=== PATIENT | male | born 1940 | race Two or more races ===

== ENCOUNTER 2017-08-06 10:04 | Outpatient (CLI) | payer OTHER ==
[~2017-08-06 10:04] MED LIST: ATORVASTATIN CA10 MG; AVAPRO300 MG PO; BRONCOTRON-D S473 ML PO; CARVEDILOL25 MG; CATAFLAM50 MG PO; CIPRO500 MG PO; DIURETICO; HYDRODIURIL12.5 MG PO; INTESTINEX1 CAP PO; LANTUS100 U/ML; LASIX20 MG; LEVAQUIN500 MG PO; LEVSIN/SL0.125 MG PO; LOSARTAN POTASS50 MG; MEDROLPACK PO; METFORMIN HCL500 MG PO; NORVASC5 MG; OMEPRAZOLE40 MG PO; PROVENTIL3 ML/2.5 M IH; TAMS0.4C; [UNRECOGNIZED DRUG - OTHER]; [UNRECOGNIZED DRUG - OTHER]
== END 2017-08-06 10:31 | disposition home or self-care (01) ==
LOC: RAD 10:04
DX: J43.2 Centrilobular emphysema (principal); Z87.891 Personal history of nicotine dependence; E66.01 Morbid (severe) obesity due to excess calories; R05 Cough

== ENCOUNTER 2018-05-13 06:08 | Day surgery (SDC) | payer OTHER | END 2018-05-13 11:12 | disposition home or self-care (01) | LOC: AMB-ENDOS 06:08 | DX: K29.50 Unspecified chronic gastritis without bleeding (principal) ==

== ENCOUNTER 2018-08-09 08:24 | Emergency (ER) | payer OTHER ==
[~2018-08-09] VITALS: Ht 170.2 cm; Wt 117.9 kg
== END 2018-08-09 15:47 | disposition home or self-care (01) ==
LOC: ER 08:24
DX: R06.02 Shortness of breath (principal); R10.817 Generalized abdominal tenderness

== ENCOUNTER → 2018-08-18 | Outpatient (CLI) | payer OTHER | END | disposition home or self-care (01) | LOC: NUCLEAR 07:00 | DX: I25.118 Atherosclerotic heart disease of native coronary artery with other forms of angina pectoris (principal) | CPT/HCPCS: 78452; 93017; A9500; J1250 ==

== ENCOUNTER 2019-01-03 06:01 | Inpatient (IN) | payer OTHER ==
[~2019-01-03] VITALS: Ht 170.2 cm; Wt 117.5 kg
--- NOTE | 2019-01-03 06:33 | NUR ---
SE RECIBE PTE ALERTA Y ORIENTADO POR DEONTE AMBULANDO CON DIFICULTAD. PTE REFIERE PRESENTAR DIFICULTAD RESPIRATORIA Y TOS DESDE HACE 4 MAX. SE OBSERVA A PTE CLINICAMENTE ENFERMO, CON PIERNAS HINCHADAS, CON DIFICULTAD RESPIRATORIA Y PALIDO. SE LE REALIZA A PTE EKG Y SE LE PRESENTA A . PTE ES COLOCADO EN AREA DE CRITICO CONECTADO A MONITOR CARDIACO Y OXIMETRIA DE PULSO.
--- NOTE | 2019-01-03 06:58 | NUR ---
PACIENTE ALERTA Y ORIENTADO X3. SE UBICO EN CAMA #1 CON BARANDAS ELEVADAS Y INTERCOM ACCESIBLE. SE CONECTO A MONITOR CARDIACO Y OXIMTERIA DE PULSO. MISS. LARA ORIENTA A PAMCIENTE SOBRE TX Y PROCEDIMIENTO A REALIZAR Y REFIRIO ENTENDER. REALIZO CANALIZACION Y MUESTRAS DE DAVID BAJO MEDIDAS ASEPTICAS. SE ADMINISTRO MEDICAMENTOS RUBY ORDEN MEDICA, LASIX 40MG IV STAT. LE REALIZARON GASES ARTERIALES A PACIENTE. 0701 PERSONAL DE ALEXANDRA X REALIZA PLACA PORTABLE.
--- NOTE | 2019-01-03 07:00 | NUR ---
SE RECIBE PTE ALERTA Y CONCIENTE POR 3 EN LA UNIDAD DE CRITICO EN CAMA #1 CON BARANDAS LEVADA TIMBRE ACCESIBLE CONECTADO A MONITOR CARDIACO Y OXYMETRIA DE PULSO PTE NO PRESENTA DOLOR ALMOMENTO. PTE EN ESEPRA DEL DR JIMENEZ
--- NOTE | 2019-01-03 16:55 | NUR ---
SE RECIBE PTE ALERTA Y ORIENTADO X3 EN MURRAY CON BARANDAS ELEVADAS AL MOMENTO. PTE SE OBSERVA CONECTADO A MONITOR CARDIACO CON OXIMETRIA DE PULSO. PTE SE OBSERVA CON H/L X2 EN BRAZO RT. PTE SE OBSERVA CON DRIP DE TRIDIL A 3ML/HR. PTE EN ESPERA DE CONSULTA CON MEDICINA INTERNA Y NEUMOLOGO. PTE SE CONTINUA MONITORIANDO POR CAMBIOS.
[2019-01-10] MEDS ORDERED: GLIMEPIRIDE4 MG PO (17:29)
[2019-01-10] MEDS ORDERED: LIPITOR40 MG PO (17:29)
[2019-01-10] MEDS ORDERED: LOSARTAN POTAS100 MG PO (17:29)
== END 2019-01-10 18:14 | disposition home or self-care (01) | DRG 190 ==
LOC: ER 06:01 → SURH 17:55 → MEDJ 01-04 17:14
PROVIDERS: ADMIT Internal Medicine
PROC: B246ZZZ Ultrasonography of Right and Left Heart (ICD-10-PCS; principal; 2019-01-03)
PROC: 4A033R1 Measurement of Arterial Saturation, Peripheral, Percutaneous Approach (ICD-10-PCS; 2019-01-03)
PROC: 4A12X4Z Monitoring of Cardiac Electrical Activity, External Approach (ICD-10-PCS; 2019-01-03)
DX: J44.1 Chronic obstructive pulmonary disease with (acute) exacerbation (principal); I50.43 Acute on chronic combined systolic (congestive) and diastolic (congestive) heart failure; A41.01 Sepsis due to Methicillin susceptible Staphylococcus aureus; B37.1 Pulmonary candidiasis; J45.41 Moderate persistent asthma with (acute) exacerbation; N17.8 Other acute kidney failure; I13.0 Hypertensive heart and chronic kidney disease with heart failure and stage 1 through stage 4 chronic kidney disease, or unspecified chronic kidney disease; B37.0 Candidal stomatitis; I07.1 Rheumatic tricuspid insufficiency; I25.10 Atherosclerotic heart disease of native coronary artery without angina pectoris; N18.3 Chronic kidney disease, stage 3 (moderate); E11.40 Type 2 diabetes mellitus with diabetic neuropathy, unspecified; E11.22 Type 2 diabetes mellitus with diabetic chronic kidney disease; E11.65 Type 2 diabetes mellitus with hyperglycemia; E66.09 Other obesity due to excess calories; Z79.4 Long term (current) use of insulin

== ENCOUNTER 2019-05-28 14:07 | Emergency (ER) | payer OTHER ==
[~2019-05-28] VITALS: Ht 170.2 cm; Wt 116.6 kg
[~2019-05-28 14:07] MED LIST changes: +GLIMEPIRIDE4 MG PO; +LIPITOR40 MG PO; +LOSARTAN POTAS100 MG PO
== END 2019-05-28 19:04 | disposition home or self-care (01) ==
LOC: ER 14:07
DX: I16.0 Hypertensive urgency (principal); I10 Essential (primary) hypertension; R06.02 Shortness of breath

== ENCOUNTER 2019-06-06 12:50 | Outpatient (CLI) | payer OTHER | END 2019-06-06 14:09 | disposition home or self-care (01) | LOC: NUCLEAR 12:50 | DX: I50.32 Chronic diastolic (congestive) heart failure (principal) | CPT/HCPCS: 78472; 78496; A9560 ==

== ENCOUNTER 2019-11-29 10:11 | Emergency (ER) | payer OTHER ==
[~2019-11-29] VITALS: Ht 170.2 cm; Wt 117.5 kg
== END 2019-11-29 13:42 | disposition home or self-care (01) ==
LOC: ER 10:11
DX: R06.02 Shortness of breath (principal)

== ENCOUNTER 2021-06-03 07:47 | Outpatient (CLI) | payer OTHER | END 2021-06-03 08:00 | disposition home or self-care (01) | LOC: TOM 07:47 | PROVIDERS: ATTEND Internal Medicine Gastroenterology | DX: K21.9 Gastro-esophageal reflux disease without esophagitis (principal); Z86.010 Personal history of colon polyps; D64.9 Anemia, unspecified; K56.600 Partial intestinal obstruction, unspecified as to cause ==

== ENCOUNTER 2021-10-11 14:56 | Inpatient (IN) | payer OTHER ==
[~2021-10-11] VITALS: Ht 170.2 cm; Wt 113.9 kg
--- NOTE | 2021-10-11 15:15 | NUR ---
SE RECIBE PACIENTE ALERTA Y ORIENTADO X3 QUIEN INDICA QUE TIENE MOLESTIA EN TODO EL CUERPO ULNA PRINCIPALMENTE EN EL AREA DE LA BANDAR CUANDO CAMINA. SE MONITOREAN S/V Y UBICA PACIENTE.
--- NOTE | 2021-10-11 15:28 | NUR ---
PTE ALERTA Y ORIENTADO X 3 ESFERAS CON REFERIDO MEDICO POR LABORATORIOS ALTERADOS Y DOLOR ABDOMINAL DESDE HACE VARIOS MESES.REFIERE NO VOMITOS.
--- NOTE | 2021-10-11 16:59 | NUR ---
PACIENTE ALERTA Y ORIENTADO X3. SE ORIENTA SOBRE PROCEDIMIENTO A REALIZAR Y REFIRIO ENTENDER. SE REALIZA MUESTRAS DE LABORATORIO BAJO MEDIDAS ASEPTICAS. SE DA CONTRASTE A LEXUS PARA CT ABDOMEN Y PELVICO CON CONTRASTE PO. SE MANTIENE BAJO OBSERVACION POR CAMBIOS SIGNIFICATIVOS.
== END 2021-10-15 19:26 | disposition home or self-care (01) | DRG 392 ==
LOC: ER 14:56 → MEDJ 10-12 04:53 → MEDI 10-12 06:30
PROVIDERS: ADMIT Internal Medicine; ATTEND Internal Medicine
PROC: BW21YZZ Computerized Tomography (CT Scan) of Abdomen and Pelvis using Other Contrast (ICD-10-PCS; principal; 2021-10-13)
PROC: B54DZZZ Ultrasonography of Bilateral Lower Extremity Veins (ICD-10-PCS; 2021-10-14)
DX: K52.89 Other specified noninfective gastroenteritis and colitis (principal); K57.30 Diverticulosis of large intestine without perforation or abscess without bleeding; Z95.1 Presence of aortocoronary bypass graft; I12.9 Hypertensive chronic kidney disease with stage 1 through stage 4 chronic kidney disease, or unspecified chronic kidney disease; E11.22 Type 2 diabetes mellitus with diabetic chronic kidney disease; Z79.4 Long term (current) use of insulin; N18.9 Chronic kidney disease, unspecified; E66.8 Other obesity; Z20.822 Contact with and (suspected) exposure to COVID-19

== ENCOUNTER → 2023-03-26 | Emergency (ER) | payer OTHER ==
[~2023-03-26] VITALS: Ht 167.6 cm; Wt 113.4 kg
== END | disposition home or self-care (01) ==
LOC: ER 19:37
DX: S91.121A Laceration with foreign body of right great toe without damage to nail, initial encounter (principal); W26.8XXA Contact with other sharp object(s), not elsewhere classified, initial encounter; Y93.89 Activity, other specified; Y92.89 Other specified places as the place of occurrence of the external cause; E11.9 Type 2 diabetes mellitus without complications; Z79.4 Long term (current) use of insulin; I10 Essential (primary) hypertension
CPT/HCPCS: 12002; 90471; 90714; 96365; 99284; J0696

== ENCOUNTER 2023-07-07 17:42 | Emergency (ER) | payer OTHER ==
[~2023-07-07] VITALS: Ht 172.7 cm; Wt 111.1 kg
[2023-07-07] MEDS ORDERED: 0.9 % SODIUM CHLORIDE 1,000 ML IV SCH (18:30)
[2023-07-07 18:32] LABS: HEMATOCRIT 27.8 % (39.0-48.0); HEMOGLOBIN 9.2 g/dL (13-16.00); MEAN CELL VOLUME 87.6 fL (80.0-100.00); MEAN CORPUSCULAR HGB CONC 33.1 g/dl (32.0-36.0); PLATELET COUNT 203 K/uL (150-450); RED BLOOD COUNT 3.17 M/uL (4.00-6.00); RED CELL DISTRIBUTION WIDTH 14.6 % (11.5-14.5)
[2023-07-07 19:05] LABS: CALCIUM 7.6 mg/dL (8.5-10.1); GFR 9.46; POTASSIUM 4.1 mEq/L (3.5-5.1)
[2023-07-07 19:51] LABS: CREATININE SERUM 5.8 mg/dL (0.70-1.30)
[2023-07-07 21:21] LABS: ABG PH 7.451 (7.35-7.45)
[2023-07-07 21:22] LABS: ABG PO2 90.1 mmHg (80-100); ABG pCO2 41.6 mmHg (35-45); BICARBONATE 28.3 mmol/l (23-25); SaO2 97.5 %; Tco2 29.6 mmol/l; allen test SATISFACTORY; o2 32 %; puncture site RADIAL LEFT
== END 2023-07-07 22:54 | disposition home or self-care (01) ==
LOC: ER 17:42
PROVIDERS: Emergency Medicine
DX: N19 Unspecified kidney failure (principal); R06.02 Shortness of breath; I10 Essential (primary) hypertension; E11.9 Type 2 diabetes mellitus without complications; Z79.4 Long term (current) use of insulin
CPT/HCPCS: 36415; 71045; 82803; 93005; 96365; 96366; 99283; J7030

== ENCOUNTER 2023-07-10 01:57 | Inpatient (IN) | payer OTHER ==
[~2023-07-10] VITALS: Ht 177.8 cm; Wt 117.9 kg
--- NOTE | 2023-07-10 02:15 | NUR ---
SE RECIBE PACIENTE EN AMBULANCIA JUNTO A PARAMEDICOS Y FAMILIAR. ESTOS REFIEREN QUE PACIENTE SUFRIO ANTHONY CAIDA EN [place] HOGAR EL MAGEN DE MAUREEN, DONDE SE GOLPEO FUERTEMENTE LA CADERA Y [place] TOBILLO DEL [facility] IZ. REFIERE VENIR POR DOLOR.
[2023-07-10] MEDS ORDERED: KETOROLAC TROMETHAMINE 60 MG VIAL IM STA (03:03)
[2023-07-10] MEDS ORDERED: OxyCODONE HCL/APAP UD (PERCOCET) PO STA ×2 (03:03→07:22)
--- NOTE | 2023-07-10 03:17 | NUR ---
PTE EVALUADO POR MD DOMINIQUEIEN ORDENA TX MED A PTE SE EDUCA A PTE OSBRE EL MISMO Y SE REALIZAN ORDENES A VALADE[place] TOTALIDAD.
--- NOTE | 2023-07-10 06:24 | NUR ---
PTE RE EVALUADO POR DR MA QUIEN ORDENA COLOCAR IMOBILIZADOR EN [facility] IZ. MS LANZA NOTIFICA A PERSONAL DE ORTOPEDIA.
--- NOTE | 2023-07-10 08:11 | NUR ---
PTE ALERTA Y ORIENTADO X3. SE ADMNISTRA MEDICAMENTO RUBY ORDEN MEDICA Y BAJO MEDIDAS ASEPTICAS.
--- NOTE | 2023-07-10 15:14 | NUR ---
PTE EN [place] DE [place]AHRA PENDIENTE A RE-EVALUACION.
[2023-07-10] MEDS ORDERED: KETOROLAC TROMETHAMINE 60 MG VIAL IM ONE ×2 (16:00)
[2023-07-10] MEDS ORDERED: INSULIN LISPRO 1,000 UNIT/10 ML UNITS SUBCUTANEO PRN (20:30)
[2023-07-10] MEDS ORDERED: DEXTROSE 50 % IN WATER 0.5 G/ML DISP.SYRIN IV PRN (20:30)
[2023-07-10] MEDS ORDERED: ONDANSETRON HCL 4 MG in 0.9 % SODIUM CHLORIDE 50 ML IV PRN (20:45)
[2023-07-10] MEDS ORDERED: MORPHINE SULFATE 2 MG/ML CARTRIDGE IV PRN (20:45)
[2023-07-10] MEDS ORDERED: ACETAMINOPHEN 500 MG GEL..CAP PO PRN (20:45)
[2023-07-10] MEDS ORDERED: FAMOTIDINE/PF 20 MG in 0.9 % SODIUM CHLORIDE 8 ML IV PUSH SCH (21:00)
[2023-07-10] MEDS ORDERED: IPRATROPIUM BROMIDE 0.5 MG/2.5 ML AMPUL.NEB IH SCH (22:39)
[2023-07-10] MEDS ORDERED: NITROGLYCERIN IN 5 % DEXTROSE 250 ML IV SCH (22:45)
[2023-07-10] MEDS ORDERED: FUROsemide 40 MG/4 ML VIAL IV SCH (22:45)
[2023-07-10 22:51] LABS: ABG PH 7.437 (7.35-7.45); ABG PO2 73.6 mmHg (80-100); ABG pCO2 39.2 mmHg (35-45); BASE EXCESS 1.7 mmol/l; BICARBONATE 25.8 mmol/l (23-25); SaO2 95.2 %
[2023-07-10 22:52] LABS: allen test SATISFACTORY; o2 21 %; puncture site RADIAL LEFT
[2023-07-11] MEDS ORDERED: IPRATROPIUM BROMIDE 0.5 MG/2.5 ML AMPUL.NEB IH SCH (02:00)
[2023-07-11 08:16] LABS: MEAN CELL VOLUME 88.9 fL (80.0-100.00); PLATELET COUNT 175 K/uL (150-450); RED BLOOD COUNT 2.55 M/uL (4.00-6.00)
[2023-07-11 08:30] LABS: INR 1.14; PROTHROMBIN TIME 11.9 SECONDS (9.0-11.5)
[2023-07-11 08:31] LABS: HEMATOCRIT 22.6 % (39.0-48.0); HEMOGLOBIN 7.7 g/dL (13-16.00); MEAN CORPUSCULAR HEMOGLOBIN 30.1 pg (27.00-32.0)
[2023-07-11 08:36] LABS: ALBUMIN 2.2 gm/dL (3.4-5.0); BILIRUBIN TOTAL 0.48 mg/dL (0.3-1.2); BILIRUBIN,CONJUGATED 0.18 mg/dL (0.0-0.2); BILIRUBIN,UNCONJUGATED 0.3 mg/dL (0.0-0.6); CALCIUM 7.3 mg/dL (8.5-10.1); CHOL HDL RATIO 3.8 (0-5.0); GLOBULINA 3.3 G/DL (2.4-3.5); POTASSIUM 4.13 mEq/L (3.5-5.1); TOTAL PROTEIN 5.5 gm/dL (6.4-8.2)
[2023-07-11 08:38] LABS: ERYTHROCYTE SEDIMENTATION RATE 75 mm/hr
[2023-07-11 08:39] LABS: URINE APPEARANCE Turbid; URINE BILIRRUBIN Negative (NEGATIVE); URINE BLOOD Small; URINE COLOR Dark Yellow; URINE GLUCOSE Negative (NEGATIVE); URINE LEUKOCYTE Small; URINE NITRATE Negative
[2023-07-11 08:41] LABS: URINE BACTERIA 1518.2 uL (0.0-1933); URINE EPITHELIAL CELLS 109.7 uL (0.0-38.8); URINE RBC 12.2 uL (0.0-20.8); URINE WBC 71.8 uL (0.0-23.2)
[2023-07-11] MEDS ORDERED: ENOXAPARIN SODIUM 40 MG/0.4 ML SYRINGE SUBCUTANEO SCH (09:00)
[2023-07-11] MEDS ORDERED: ATORVASTATIN CALCIUM 20 MG TABLET PO SCH (09:00)
[2023-07-11] MEDS ORDERED: FAMOTIDINE/PF 20 MG/2 ML VIAL ONE ×2 (09:17→20:13)
[2023-07-11 09:33] LABS: GFR 6.74
[2023-07-11 09:35] LABS: C-REACTIVE PROTEIN 34.4 MG/DL (0.00-0.29); CREATININE SERUM 7.78 mg/dL (0.70-1.30)
[2023-07-11 09:39] LABS: URINE PROTEIN 300 (NEGATIVE)
[2023-07-11] MEDS ORDERED: CHLORHEXIDINE GLUCONATE 120 ML BOTTLE TOP ONE (11:27)
[2023-07-12] MEDS ORDERED: FAMOTIDINE/PF 20 MG/2 ML VIAL ONE ×2 (07:48→19:52)
[2023-07-12 12:12] LABS: HEMATOCRIT 28.6 % (39.0-48.0); MEAN CELL VOLUME 87.4 fL (80.0-100.00); MEAN CORPUSCULAR HEMOGLOBIN 30.2 pg (27.00-32.0); MEAN CORPUSCULAR HGB CONC 34.6 g/dl (32.0-36.0); PLATELET COUNT 167 K/uL (150-450); RED BLOOD COUNT 3.27 M/uL (4.00-6.00); RED CELL DISTRIBUTION WIDTH 14.7 % (11.5-14.5)
[2023-07-12 12:25] LABS: HEMOGLOBIN 9.9 g/dL (13-16.00)
[2023-07-12] MEDS ORDERED: AMIODARONE IN DEXTROSE,ISO-OSM 360 MG/200 ML IV.SOLN IV ONE (12:43)
[2023-07-12] MEDS ORDERED: AMIODARONE HCL 50 MG/ML AMPUL IV ONE ×2 (12:43→13:00)
[2023-07-13] MEDS ORDERED: FAMOTIDINE/PF 20 MG/2 ML VIAL ONE (09:20)
[2023-07-13 11:30] LABS: URINE LEUKOCYTE MODERATE; URINE NITRATE POSITIVE
[2023-07-13 12:02] LABS: URINE BILIRRUBIN LARGE (NEGATIVE); URINE BLOOD LARGE; URINE GLUCOSE 100 MG/DL (NEGATIVE); URINE PROTEIN >=300 (NEGATIVE); URINE UROBILINOGEN >= 8.0 E.U./dl
[2023-07-13 12:03] LABS: URINE APPEARANCE TURBID; URINE COLOR BROWN
[2023-07-13 12:05] LABS: URINE BACTERIA MANY; URINE EPITHELIAL CELLS 0-4 /HPF; URINE RBC LOADED /HPF; URINE WBC 0-2 /hpf
[2023-07-13] MEDS ORDERED: AMIODARONE HCL 200 MG TABLET PO SCH (17:00)
[2023-07-14 06:23] LABS: HEMATOCRIT 32.7 % (39.0-48.0); HEMOGLOBIN 11.1 g/dL (13-16.00); MEAN CELL VOLUME 86.4 fL (80.0-100.00); MEAN CORPUSCULAR HEMOGLOBIN 29.3 pg (27.00-32.0); MEAN CORPUSCULAR HGB CONC 33.9 g/dl (32.0-36.0); PLATELET COUNT 261 K/uL (150-450); RED BLOOD COUNT 3.79 M/uL (4.00-6.00); RED CELL DISTRIBUTION WIDTH 15.5 % (11.5-14.5)
[2023-07-14 06:58] LABS: ALBUMIN 2.3 gm/dL (3.4-5.0); BILIRUBIN TOTAL 0.77 mg/dL (0.3-1.2); CALCIUM 9.3 mg/dL (8.5-10.1); GFR 10.29; GLOBULINA 4.7 G/DL (2.4-3.5); POTASSIUM 4.83 mEq/L (3.5-5.1)
[2023-07-14 07:10] LABS: CREATININE SERUM 5.39 mg/dL (0.70-1.30)
[2023-07-14] MEDS ORDERED: FAMOTIDINE/PF 20 MG/2 ML VIAL ONE (07:52)
[2023-07-14] MEDS ORDERED: METOPROLOL SUCCINATE 25 MG TAB.SR.24H PO SCH (09:00)
[2023-07-14] MEDS ORDERED: CEFTRIAXONE SODIUM 2,000 MG in 0.9 % SODIUM CHLORIDE 100 ML IV SCH (09:33)
[2023-07-14] MEDS ORDERED: CEFAZOLIN SODIUM 1,000 MG in DEXTROSE 5 % IN WATER 50 ML IV SCH (19:54)
[2023-07-14] MEDS ORDERED: IPRATROPIUM BROMIDE 0.5 MG/2.5 ML AMPUL.NEB IH STA (20:13)
[2023-07-14] MEDS ORDERED: METHYLPREDNISOLONE SOD SUCC 125 MG VIAL IV STA (20:14)
[2023-07-14] MEDS ORDERED: BUDESONIDE 0.5 MG/2 ML AMPUL.NEB IH STA (20:14)
[2023-07-14 22:16] LABS: ABG PO2 51.6 mmHg (80-100); ABG pCO2 44.6 mmHg (35-45); SaO2 82.9 %
[2023-07-14 22:17] LABS: Tco2 24.4 mmol/l; allen test SATISFACTORY; o2 50 %; puncture site RADIAL LEFT
[2023-07-15] MEDS ORDERED: IPRATROPIUM BROMIDE 0.5 MG/2.5 ML AMPUL.NEB IH SCH (01:00)
[2023-07-15] MEDS ORDERED: METHYLPREDNISOLONE SOD SUCC 40 MG VIAL IV SCH (01:00)
[2023-07-15] MEDS ORDERED: METHYLPREDNISOLONE SOD SUCC 125 MG VIAL IV SCH (09:00)
[2023-07-15] MEDS ORDERED: VANCOMYCIN HCL 500 MG VIAL IV SCH (09:00)
[2023-07-16 09:39] LABS: ABG PH 7.352 (7.35-7.45); ABG PO2 193.1 mmHg (80-100); ABG pCO2 40.3 mmHg (35-45); BASE EXCESS -3.5 mmol/l; BICARBONATE 21.8 mmol/l (23-25); SaO2 99.6 %; Tco2 23.1 mmol/l; allen test SATISFACTORY; puncture site RADIAL RIGHT
[2023-07-16 09:40] LABS: o2 60 %
[2023-07-17 10:42] LABS: HEMOGLOBIN 11.5 g/dL (13-16.00); MEAN CELL VOLUME 87.5 fL (80.0-100.00); MEAN CORPUSCULAR HEMOGLOBIN 28.8 pg (27.00-32.0); MEAN CORPUSCULAR HGB CONC 32.9 g/dl (32.0-36.0); PLATELET COUNT 269 K/uL (150-450); RED BLOOD COUNT 4.01 M/uL (4.00-6.00); RED CELL DISTRIBUTION WIDTH 16.1 % (11.5-14.5)
[2023-07-17 11:16] LABS: ALBUMIN 2.2 gm/dL (3.4-5.0); BILIRUBIN TOTAL 0.78 mg/dL (0.3-1.2); CALCIUM 8.9 mg/dL (8.5-10.1); GFR 10.31; GLOBULINA 5.1 G/DL (2.4-3.5); POTASSIUM 4.8 mEq/L (3.5-5.1); TOTAL PROTEIN 7.3 gm/dL (6.4-8.2)
[2023-07-17 11:35] LABS: CREATININE SERUM 5.38 mg/dL (0.70-1.30)
[2023-07-17] MEDS ORDERED: LIDOCAINE HCL 100 MG/10ML VIAL ONE (13:58)
[2023-07-17] MEDS ORDERED: HEPARIN SODIUM,PORCINE 5,000 UNITS/ML VIAL IV ONE (14:00)
[2023-07-17] MEDS ORDERED: LIDOCAINE HCL 100 MG/10ML VIAL PERCUT ONE (14:00)
[2023-07-17] MEDS ORDERED: MUPIROCIN 15 GM OINT..GM TUBE NASAL SCH (17:00)
[2023-07-18] MEDS ORDERED: CHLORHEXIDINE GLUCONATE 240 ML BOTTLE TOP SCH (09:00)
[2023-07-19] MEDS ORDERED: CHLORHEXIDINE GLUCONATE 120 ML BOTTLE TOP ONE (08:23)
[2023-07-19 09:08] LABS: COL EPI 211 SECONDS (82-175)
[2023-07-19] MEDS ORDERED: PANTOPRAZOLE SODIUM 40 MG TABLET.DR PO SCH (14:08)
[2023-07-19] MEDS ORDERED: NAFCILLIN SODIUM IV SCH (17:00)
[2023-07-19] MEDS ORDERED: SODIUM CHLORIDE 0.9% IV SCH (17:00)
[2023-07-19] MEDS ORDERED: METHYLPREDNISOLONE SOD SUCC 40 MG VIAL IV SCH ×2 (17:00)
[2023-07-19] MEDS ORDERED: INSULIN NPH HUMAN ISOPHANE 1,000 UNITS/10 ML UNITS SUBCUTANEO SCH (21:00)
[2023-07-20] MEDS ORDERED: MUPIROCIN 22 GM OINT..GM TUBE NASAL SCH (01:46)
[2023-07-20 07:18] LABS: HEMATOCRIT 34.7 % (39.0-48.0); HEMOGLOBIN 11.3 g/dL (13-16.00); MEAN CELL VOLUME 88.2 fL (80.0-100.00); MEAN CORPUSCULAR HEMOGLOBIN 28.7 pg (27.00-32.0); MEAN CORPUSCULAR HGB CONC 32.5 g/dl (32.0-36.0); PLATELET COUNT 297 K/uL (150-450); RED BLOOD COUNT 3.94 M/uL (4.00-6.00); RED CELL DISTRIBUTION WIDTH 16.5 % (11.5-14.5)
[2023-07-20 07:52] LABS: ABG PH 7.268 (7.35-7.45); ABG PO2 119.2 mmHg (80-100); BASE EXCESS -11.3 mmol/l; BICARBONATE 14.3 mmol/l (23-25); SaO2 97.7 %; Tco2 15.3 mmol/l
[2023-07-20 07:53] LABS: allen test SATISFACTORY; o2 60 %; puncture site RADIAL RIGHT
[2023-07-20 08:05] LABS: ALBUMIN 2.1 gm/dL (3.4-5.0); BILIRUBIN TOTAL 1.07 mg/dL (0.3-1.2); GLOBULINA 4.8 G/DL (2.4-3.5); TOTAL PROTEIN 6.9 gm/dL (6.4-8.2)
[2023-07-20 08:12] LABS: GFR 5.17
[2023-07-20 08:17] LABS: CREATININE SERUM 9.79 mg/dL (0.70-1.30)
[2023-07-20 08:18] LABS: POTASSIUM 6.55 mEq/L (3.5-5.1)
[2023-07-20] MEDS ORDERED: SODIUM POLYSTYRENE SULFONATE 15 G/4 TSP TSP PO SCH (10:00)
[2023-07-20] MEDS ORDERED: CHLORHEXIDINE GLUCONATE 120 ML BOTTLE TOP ONE (11:28)
[2023-07-20] MEDS ORDERED: SODIUM POLYSTYRENE SULFONATE 15 G/4 TSP TSP NGT SCH (12:01)
[2023-07-20] MEDS ORDERED: NOREPINEPHRINE BITARTRATE 1 MG/ML AMPUL IV ONE (14:27)
[2023-07-20] MEDS ORDERED: NOREPINEPHRINE BITARTRATE 8 MG in DEXTROSE 5 % IN WATER 250 ML IV SCH (14:30)
[2023-07-20 15:06] LABS: HEMATOCRIT 35.6 % (39.0-48.0); HEMOGLOBIN 11.6 g/dL (13-16.00); MEAN CORPUSCULAR HEMOGLOBIN 28.6 pg (27.00-32.0); MEAN CORPUSCULAR HGB CONC 32.5 g/dl (32.0-36.0); PLATELET COUNT 382 K/uL (150-450); RED BLOOD COUNT 4.04 M/uL (4.00-6.00); RED CELL DISTRIBUTION WIDTH 16.2 % (11.5-14.5)
[2023-07-21 09:20] LABS: ALKALINE PHOSPHATASE 83 U/L (50-136); ANION GAP 24 (10.0-20.0); AST/SGOT 10 U/L (15-37); BILIRUBIN TOTAL 1.21 mg/dL (0.3-1.2); CALCIUM 7.7 mg/dL (8.5-10.1); CARBON DIOXIDE 18 mEq/L (21-32); CHLORIDE 100 mmol/L (98-107); GLOBULINA 4.6 G/DL (2.4-3.5); POTASSIUM 5.13 mEq/L (3.5-5.1); SODIUM 137 mmol/L (136-145); TOTAL PROTEIN 6.6 gm/dL (6.4-8.2)
[2023-07-21 09:26] LABS: ALT/SGPT < 6 U/L (12-78); BUN CREA RATIO 19 (7.0-25.0); GFR 6.92; GLUCOSE FASTING 242 mg/dL (65-100); OSMOLALITY SERUM 328 MOSM/KG (275-295)
[2023-07-21 09:27] LABS: BLOOD UREA NITROGEN 142 mg/dL (7-18)
[2023-07-21] MEDS ORDERED: FUROsemide 20 MG/2 ML VIAL IV SCH (21:00)
[2023-07-21] MEDS ORDERED: SODIUM CL 0.9% 100 ML IV.SOLN IV ONE (23:59)
== END 2023-07-22 10:24 | disposition expired | DRG 871 ==
LOC: ER 01:57 → SEC-K 20:54 → MEDI 07-11 03:03 → ICU 07-11 03:07 → MEDJ 07-14 14:46 → ICU 07-17 21:46
PROVIDERS: General Practice; Internal Medicine; Internal Medicine Critical Care Medicine; Orthopaedic Surgery; ADMIT Internal Medicine; ATTEND Internal Medicine
PROC: 3E0F7GC Introduction of Other Therapeutic Substance into Respiratory Tract, Via Natural or Artificial Opening (ICD-10-PCS; 2023-07-11)
PROC: 5A09457 Assistance with Respiratory Ventilation, 24-96 Consecutive Hours, Continuous Positive Airway Pressure (ICD-10-PCS; 2023-07-11)
PROC: 5A1D70Z Performance of Urinary Filtration, Intermittent, Less than 6 Hours Per Day (ICD-10-PCS; principal; 2023-07-12)
PROC: B246ZZZ Ultrasonography of Right and Left Heart (ICD-10-PCS; 2023-07-12)
PROC: 30243N1 Transfusion of Nonautologous Red Blood Cells into Central Vein, Percutaneous Approach (ICD-10-PCS; 2023-07-12)
PROC: 5A1D70Z Performance of Urinary Filtration, Intermittent, Less than 6 Hours Per Day (ICD-10-PCS; 2023-07-13)
PROC: 4A12X4Z Monitoring of Cardiac Electrical Activity, External Approach (ICD-10-PCS; 2023-07-14)
PROC: 5A1D70Z Performance of Urinary Filtration, Intermittent, Less than 6 Hours Per Day (ICD-10-PCS; 2023-07-15)
PROC: BW40ZZZ Ultrasonography of Abdomen (ICD-10-PCS; 2023-07-17)
PROC: 0J2TXYZ Change Other Device in Trunk Subcutaneous Tissue and Fascia, External Approach (ICD-10-PCS; 2023-07-17)
PROC: 5A1D70Z Performance of Urinary Filtration, Intermittent, Less than 6 Hours Per Day (ICD-10-PCS; 2023-07-20)
PROC: 0DH67UZ Insertion of Feeding Device into Stomach, Via Natural or Artificial Opening (ICD-10-PCS; 2023-07-20)
PROC: 5A1D70Z Performance of Urinary Filtration, Intermittent, Less than 6 Hours Per Day (ICD-10-PCS; 2023-07-21)
PROC: B246ZZZ Ultrasonography of Right and Left Heart (ICD-10-PCS; 2023-07-21)
DX: A41.01 Sepsis due to Methicillin susceptible Staphylococcus aureus (principal); I50.23 Acute on chronic systolic (congestive) heart failure; T80.211A Bloodstream infection due to central venous catheter, initial encounter; R65.21 Severe sepsis with septic shock; N18.6 End stage renal disease; J96.00 Acute respiratory failure, unspecified whether with hypoxia or hypercapnia; I13.2 Hypertensive heart and chronic kidney disease with heart failure and with stage 5 chronic kidney disease, or end stage renal disease; N39.0 Urinary tract infection, site not specified; J90 Pleural effusion, not elsewhere classified; J44.1 Chronic obstructive pulmonary disease with (acute) exacerbation; I25.810 Atherosclerosis of coronary artery bypass graft(s) without angina pectoris; N17.8 Other acute kidney failure; E87.20 Acidosis, unspecified; S82.62XA Displaced fracture of lateral malleolus of left fibula, initial encounter for closed fracture; D64.89 Other specified anemias; E11.22 Type 2 diabetes mellitus with diabetic chronic kidney disease; E11.65 Type 2 diabetes mellitus with hyperglycemia; D63.1 Anemia in chronic kidney disease; R13.19 Other dysphagia; M16.11 Unilateral primary osteoarthritis, right hip; I95.9 Hypotension, unspecified; W01.0XXA Fall on same level from slipping, tripping and stumbling without subsequent striking against object, initial encounter; Y93.9 Activity, unspecified; Y92.019 Unspecified place in single-family (private) house as the place of occurrence of the external cause; Y99.9 Unspecified external cause status; Z99.2 Dependence on renal dialysis; Z79.84 Long term (current) use of oral hypoglycemic drugs; Z79.4 Long term (current) use of insulin; Z74.01 Bed confinement status; Z87.891 Personal history of nicotine dependence; Z95.1 Presence of aortocoronary bypass graft